=== PATIENT | female | born 1955 | race Hispanic/Latino ===

== ENCOUNTER → 2022-06-05 | Outpatient (CLI) | payer OTHER | END | disposition home or self-care (01) | LOC: RAH 13:24 | PROVIDERS: ATTEND Family Medicine | DX: Z12.31 Encounter for screening mammogram for malignant neoplasm of breast (principal) | CPT/HCPCS: 77067 ==

== ENCOUNTER → 2024-09-16 | Outpatient (CLI) | payer OTHER ==
--- NOTE | 2024-09-16 11:03 | HMCIMG ---
ULTRASOUND ABDOMEN LIMITED INDICATION: Elevated liver function tests COMPARISON: None FINDINGS: The liver is normal in size and increased in echogenicity; no focal lesion demonstrated. Main portal vein is patent, and normal direction of vascular flow demonstrated. The common bile duct diameter measures 7.0 mm. No evidence for calculi, sludge or pericholecystic fluid. 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 Wall thickness measures 2.0 mm. Visible portions of the pancreas appear normal. The right kidney measures 11.3 x 4.7 x 5.0 cm,and is normal in echogenicity, without evidence for hydronephrosis.No shadowing stones demonstrated. No free fluid demonstrated. IMPRESSION: Common bile duct caliber at 7.0 mm. Correlation with bilirubin and alkaline phosphatase levels is recommended. No evidence for cholelithiasis or cholecystitis. Findings suggesting hepatic steatosis or other underlying hepatocellular disease process.
== END | disposition home or self-care (01) ==
LOC: RAH 08:03
PROVIDERS: ATTEND Family Medicine
DX: R79.89 Other specified abnormal findings of blood chemistry (principal)
CPT/HCPCS: 76705

== ENCOUNTER → 2024-12-08 | Outpatient (CLI) | payer OTHER | END | disposition home or self-care (01) | LOC: RAH 12:19 | PROVIDERS: ATTEND Family Medicine | DX: Z12.31 Encounter for screening mammogram for malignant neoplasm of breast (principal) | CPT/HCPCS: 77067 ==